=== PATIENT | female | born 1960 | race Caucasian/White ===

== ENCOUNTER 2022-10-18 12:54 | Inpatient (IN) | payer BC ==
[~2022-10-18] VITALS: Ht 170.2 cm; Wt 90.1 kg
[~2022-10-18 12:54] MED LIST: ALBUMIN (HUMAN) 25% 50 ML IV ONE; AMINOCAPROIC ACID 5,000MG VIAL IV ONE; CACL 1GM SYG IVP ONE; HEPARIN 10,000 UNIT/10ML (1,000 UNIT/ML) VIAL IV ONE; MANNITOL 25% 50ML VIAL IV ONE; SODIUM BICARB 8.4% 50ML SYRINGE IVP ONE
[2022-10-18 16:04] VITALS: BP 148/83
[2022-10-18] MEDS ORDERED: ACETAMINOPHEN 325 MG TAB PO PRN (17:00)
[2022-10-18] MEDS ORDERED: POTASSIUM CHLORIDE 20MEQ/100ML 100 ML IV PRN (17:00)
[2022-10-18] MEDS ORDERED: GLUCAGON 1MG KIT 1 MG ML IM PRN (17:00)
[2022-10-18] MEDS ORDERED: KCL 20 MEQ ERTAB PO PRN (17:00)
[2022-10-18] MEDS ORDERED: ONDANSETRON 4MG INJ IV PRN (17:00)
[2022-10-18] MEDS ORDERED: DEXTROSE 50%-WATER 50 ML DISP.SYRIN IV PRN (17:00)
[2022-10-18] MEDS ORDERED: LACTULOSE 20 GM/30 ML UDCUP PO PRN (17:00)
[2022-10-18] MEDS ORDERED: LIDOCAINE HCL-MPF 1% 2ML VIAL IV PRN (17:00)
[2022-10-18] MEDS ORDERED: POTASSIUM CHLORIDE 10% ELIXIR 20 MEQ/15 ML UDCUP PO PRN (17:00)
[2022-10-18] MEDS ORDERED: MAGNESIUM 2GM PREMIX 50ML 50 ML IV PRN (17:00)
[2022-10-18 17:21] LABS: BASOPHILS % (AUTO) 0.4 % (0.0-5.0); EOSINOPHILS % (AUTO) 0.9 % (0.0-8.0); HEMATOCRIT 38.1 % (36-48); MEAN CORPUSCULAR HEMOGLOBIN 27.7 pg (27.0-33.0); MEAN CORPUSCULAR HGB CONC 32.8 g/dL (32.0-36.0); MEAN CORPUSCULAR VOLUME 84.5 fL (79-99); NEUTROPHILS % (AUTO) 69.2 % (40.0-77.0); PLATELET COUNT (AUTO) 279 K/uL (130-400); RED BLOOD CELL COUNT(AUTO) 4.51 MIL/uL (4.00-5.50); WHITE BLOOD COUNT (AUTO) 12.3 K/uL (4.8-10.8)
[2022-10-18 17:33] LABS: ALBUMIN 3.4 g/dL (3.5-5.0)
[2022-10-18 17:58] LABS: HEMOGLOBIN A1C 10.8 % (4.0-6.0)
[2022-10-18] MEDS ORDERED: METF-446 PO (19:00)
[2022-10-18] MEDS ORDERED: INSU100V37 SQ (19:00)
[2022-10-18 19:15] VITALS: BP 163/78
[2022-10-18] MEDS ORDERED: CEFAZOLIN SODIUM 1 GM VIAL IVP SCH (19:30)
[2022-10-18] MEDS: METOPROLOL TARTRATE 25 MG TAB PO SCH (20:56)
[2022-10-18] MEDS: ATORVASTATIN 40 MG TABLET PO SCH (20:56)
[2022-10-18] MEDS: INSULIN HUMULIN R 100 UNIT/ML 3ML SQ SCH (21:14)
[2022-10-18] MEDS ORDERED: ZOLPIDEM TARTRATE 5 MG TAB PO ONE (23:00)
[2022-10-18] MEDS ORDERED: INSULIN HUMULIN R 100 UNIT/ML 3ML SQ ONE (23:00)
[2022-10-19] VITALS (27 sets, daily range): BP systolic 79–196; BP diastolic 39–103
[2022-10-19 03:43] LABS: BASOPHILS % (AUTO) 0.6 % (0.0-5.0); EOSINOPHILS % (AUTO) 1.4 % (0.0-8.0); HEMATOCRIT 35.9 % (36-48); LYMPHOCYTES % (AUTO) 28.3 % (21.0-51.0); MEAN CORPUSCULAR HEMOGLOBIN 27.6 pg (27.0-33.0); MEAN CORPUSCULAR HGB CONC 32.6 g/dL (32.0-36.0); MEAN CORPUSCULAR VOLUME 84.7 fL (79-99); MONOCYTES % (AUTO) 6.7 % (3.0-13.0); NEUTROPHILS % (AUTO) 62.6 % (40.0-77.0); PLATELET COUNT (AUTO) 243 K/uL (130-400); RED BLOOD CELL COUNT(AUTO) 4.24 MIL/uL (4.00-5.50); RED CELL DISTRIBUTION WIDTH 12.5 % (11.0-15.5); WHITE BLOOD COUNT (AUTO) 11.2 K/uL (4.8-10.8)
[2022-10-19 03:51] LABS: HEMOGLOBIN A1C 10.7 % (4.0-6.0)
[2022-10-19 03:54] LABS: INR 0.93 (0.85-1.15); POTASSIUM 3.9 mmol/L (3.5-5.1); PROTHROMBIN TIME 9.7 SEC (9.6-11.6)
[2022-10-19 03:55] LABS: PARTIAL THROMBOPLASTIN TIME 24.4 SEC (26.3-35.5)
[2022-10-19 03:58] LABS: TOTAL PROTEIN, SERUM 6.4 g/dL (6.0-8.3)
[2022-10-19 04:07] LABS: ABG BASE EXCESS 0.6 mmol/L (-2.0-3.0); ABG OXYGEN SATURATION 96.3 % (95.0-99.0); ABG PCO2 45 mmHg (32-45)
[2022-10-19 04:10] LABS: B-TYPE NATRIURETIC PEPTIDE 86 pg/mL (0-100)
[2022-10-19] MEDS: INSULIN HUMULIN R 100 UNIT/ML 3ML SQ SCH (07:30)
[2022-10-19] MEDS: ASPIRIN 81MG CHEW TAB PO SCH (08:10)
[2022-10-19] MEDS: METOPROLOL TARTRATE 25 MG TAB PO SCH (08:12)
[2022-10-19] MEDS ORDERED: NITROGLYCERIN 50MG/D5W 250ML 1 BOT ONE (08:27)
[2022-10-19] MEDS ORDERED: PAPAVERINE HCL 30 MG/ML 2ML VIAL ONE (08:44)
[2022-10-19] MEDS ORDERED: CEFAZOLIN SODIUM 1 GM VIAL ONE (08:44)
[2022-10-19] MEDS ORDERED: ENOXAPARIN SODIUM 40 MG/0.4 ML SYRINGE SQ SCH (09:00)
[2022-10-19] MEDS ORDERED: PANTOPRAZOLE 40 MG/VIAL IVP SCH (09:00)
[2022-10-19] MEDS ORDERED: ENOXAPARIN SODIUM 30 MG/0.3 ML SQ SCH (09:00)
[2022-10-19] MEDS ORDERED: EPINEPHRINE PF 1MG (1:1,000) 10 MG in 0.9% NACL 250ML 240 ML IV PRN ×2 (09:30→13:30)
[2022-10-19] MEDS ORDERED: AMINOCAPROIC ACID 5,000MG VIAL 15,000 MG in 0.9% NACL 500ML IV.SOLN 420 ML IV PRN (09:30)
[2022-10-19] MEDS ORDERED: NOREPINEPHRINE BITARTRATE 8 MG in DEXTROSE 5%-WATER 250 ML IV PRN (09:30)
[2022-10-19] MEDS ORDERED: DELNIDO FORMULA 2 BAG IV ONE (09:55)
[2022-10-19] MEDS ORDERED: INSULIN HUMULIN R 100 UNIT/ML 3ML IV ONE (11:00)
[2022-10-19] MEDS ORDERED: 0.9%NACL 1000ML 1,000 ML IV ONE (11:03)
[2022-10-19] MEDS ORDERED: LIDOCAINE PF 100MG/5ML (2%) SYRINGE 5ML ONE (11:22)
[2022-10-19] MEDS ORDERED: HEPARIN 10,000 UNIT/10ML (1,000 UNIT/ML) VIAL ONE ×2 (11:22→14:24)
[2022-10-19] MEDS ORDERED: EPINEPHRINE PF 1MG (1:1,000) 1 MG/ML AMP ONE (11:22)
[2022-10-19] MEDS ORDERED: PROTAMINE SULFATE 10 MG/ML 25ML VIAL IV ONE (11:22)
[2022-10-19] MEDS ORDERED: ESMOLOL HCL 10 MG/ML 10 ML VIAL ONE (11:22)
[2022-10-19] MEDS ORDERED: ROCURONIUM 10MG/1ML SYR 10 MG/ML ML ONE (11:23)
[2022-10-19] MEDS ORDERED: MIDAZOLAM HCL 1 MG/ML 2ML VIAL ONE (11:23)
[2022-10-19] MEDS ORDERED: PROPOFOL 10 MG/ML 20ML VIAL IV ONE (11:23)
[2022-10-19] MEDS ORDERED: FENTANYL CITRATE PF 50 MCG/1 ML 20ML VIAL IJ ONE (11:23)
[2022-10-19] MEDS ORDERED: SODIUM BICARB 50MEQ 50ML VIAL 100 ML ONE (11:23)
[2022-10-19] MEDS ORDERED: NOREPINEPHRINE BITARTRATE 1 MG/1 ML ML IV ONE (11:23)
[2022-10-19] MEDS ORDERED: AMINOCAPROIC ACID 5,000MG VIAL ONE (11:23)
[2022-10-19] MEDS ORDERED: KETAMINE 50MG/ML SYRINGE 50 MG/ML DISP.SYRIN ONE (11:24)
[2022-10-19 12:03] LABS: ABG BASE EXCESS -1.2 mmol/L (-2.0-3.0); ABG HCO3 22.9 mmol/L (21.0-28.0); ABG OXYGEN SATURATION 99.3 % (95.0-99.0); ABG PCO2 37 mmHg (32-45)
[2022-10-19] MEDS ORDERED: DESMOPRESSIN 40MCG INJ IJ ONE (13:09)
[2022-10-19] MEDS ORDERED: 0.9% NACL 500ML IV.SOLN 500 ML IV SCH (13:30)
[2022-10-19] MEDS ORDERED: DEXTROSE 50%-WATER 50 ML DISP.SYRIN IV PRN (13:30)
[2022-10-19] MEDS ORDERED: MORPHINE 2 MG SYG IV PRN (13:30)
[2022-10-19] MEDS ORDERED: PROPOFOL 1000 MG/100 ML 100 ML IV PRN (13:30)
[2022-10-19] MEDS ORDERED: POTASSIUM PHOS 15 mMOL+NS250ML 250 ML IV PRN (13:30)
[2022-10-19] MEDS ORDERED: ALBUMIN (HUMAN) 5% 250 ML IV PRN (13:30)
[2022-10-19] MEDS ORDERED: AMINOCAPROIC ACID 5,000MG VIAL 15,000 MG in 0.9% NACL 250ML 250 ML IV SCH (13:30)
[2022-10-19] MEDS ORDERED: NITROGLYCERIN 50MG/D5W 250ML 250 BOT IV SCH (13:30)
[2022-10-19] MEDS ORDERED: ACETAMINOPHEN 650 MG SUPPOSITORY RC PRN (13:30)
[2022-10-19] MEDS ORDERED: ACETAMINOPHEN 325 MG TAB PO PRN (13:30)
[2022-10-19] MEDS ORDERED: 0.9%NACL 10ML VIAL IVP PRN (13:30)
[2022-10-19] MEDS ORDERED: 0.9%NACL 1000ML 1,000 ML IV SCH (13:30)
[2022-10-19] MEDS ORDERED: MORPHINE 4 MG SYG IV PRN (13:30)
[2022-10-19] MEDS ORDERED: GLUCAGON 1MG KIT 1 MG ML IM PRN (13:30)
[2022-10-19] MEDS ORDERED: NOREPINEPHRIN 4MG/NS 250ML 250 ML IV PRN (13:30)
[2022-10-19 13:32] LABS: ABG BASE EXCESS 2.6 mmol/L (-2.0-3.0); ABG HCO3 26.2 mmol/L (21.0-28.0); ABG OXYGEN SATURATION 98.9 % (95.0-99.0); ABG PCO2 35 mmHg (32-45)
[2022-10-19 13:50] LABS: ABG BASE EXCESS 0.9 mmol/L (-2.0-3.0); ABG HCO3 24.7 mmol/L (21.0-28.0); ABG OXYGEN SATURATION 98.9 % (95.0-99.0); ABG PCO2 35 mmHg (32-45)
[2022-10-19 14:02] LABS: ABG BASE EXCESS 0.4 mmol/L (-2.0-3.0); ABG HCO3 24.3 mmol/L (21.0-28.0); ABG OXYGEN SATURATION 98.7 % (95.0-99.0); ABG PCO2 36 mmHg (32-45)
[2022-10-19 14:19] LABS: ABG BASE EXCESS -0.6 mmol/L (-2.0-3.0); ABG HCO3 23.8 mmol/L (21.0-28.0); ABG OXYGEN SATURATION 98.8 % (95.0-99.0); ABG PCO2 38 mmHg (32-45)
[2022-10-19] MEDS ORDERED: PROTAMINE SULFATE 10 MG/ML 5 ML VIAL ONE (14:24)
[2022-10-19 14:27] LABS: ABG BASE EXCESS -2.2 mmol/L (-2.0-3.0); ABG HCO3 22.5 mmol/L (21.0-28.0); ABG OXYGEN SATURATION 98.9 % (95.0-99.0); ABG PCO2 38 mmHg (32-45)
[2022-10-19 14:51] LABS: ABG BASE EXCESS -4.9 mmol/L (-2.0-3.0); ABG HCO3 19.7 mmol/L (21.0-28.0); ABG OXYGEN SATURATION 98.9 % (95.0-99.0); ABG PCO2 34 mmHg (32-45)
[2022-10-19] MEDS ORDERED: ASPIRIN 81MG CHEW TAB NG ONE (15:00)
[2022-10-19] MEDS ORDERED: GLYCOPYRROLATE 1 MG/5 ML SYRINGE ONE (15:33)
[2022-10-19 15:55] LABS: ABG BASE EXCESS -3.9 mmol/L (-2.0-3.0); ABG HCO3 21.8 mmol/L (21.0-28.0); ABG OXYGEN SATURATION 98.5 % (95.0-99.0); ABG PCO2 42 mmHg (32-45)
[2022-10-19 16:03] LABS: HEMATOCRIT 28.1 % (36-48); MEAN CORPUSCULAR HGB CONC 33.1 g/dL (32.0-36.0); MEAN CORPUSCULAR VOLUME 84.6 fL (79-99); PLATELET COUNT (AUTO) 189 K/uL (130-400); RED BLOOD CELL COUNT(AUTO) 3.32 MIL/uL (4.00-5.50); RED CELL DISTRIBUTION WIDTH 12.7 % (11.0-15.5)
[2022-10-19] MEDS: SODIUM BICARB 50MEQ 50ML VIAL IV PRN ×3 (16:09→20:16)
[2022-10-19 16:14] LABS: WHITE BLOOD COUNT (AUTO) 32.7 K/uL (4.8-10.8)
[2022-10-19 16:17] LABS: CREATININE 0.8 mg/dL (0.5-1.5); MAGNESIUM 1.7 mg/dL (1.80-2.40); PHOSPHORUS 3.6 mg/dL (2.5-4.9)
[2022-10-19 16:20] LABS: INR 1.09 (0.85-1.15); PROTHROMBIN TIME 11.8 SEC (9.6-11.6)
[2022-10-19] MEDS ORDERED: HYDRALAZINE 20MG/ML VIAL ONE (16:20)
[2022-10-19 16:21] LABS: PARTIAL THROMBOPLASTIN TIME 25.6 SEC (26.3-35.5)
[2022-10-19] MEDS ORDERED: HYDRALAZINE 20MG/ML VIAL IV PRN (16:30)
[2022-10-19 17:11] LABS: ABG BASE EXCESS -0.7 mmol/L (-2.0-3.0); ABG HCO3 23.9 mmol/L (21.0-28.0); ABG OXYGEN SATURATION 98.6 % (95.0-99.0); ABG PCO2 39 mmHg (32-45)
[2022-10-19] MEDS: INSULIN REGULAR, HUMAN 3ML 100 UNIT in 0.9%NACL 100ML 99 ML IV SCH ×2 (17:33)
[2022-10-19] MEDS: MAGNESIUM 2GM PREMIX 50ML 50 ML IV PRN (17:39)
[2022-10-19] MEDS: CALCIUM GLUC 1GM 1 GM in 0.9%NACL 50ML 50 ML IV PRN ×3 (18:21→22:43)
[2022-10-19] MEDS: CEFAZOLIN SODIUM 1 GM VIAL IVPB SCH (18:21)
[2022-10-19 18:40] LABS: BAND NEUTROPHILS % (MANUAL) 27 % (0-2); LYMPHOCYTES % (MANUAL) 4 % (22-44); MAN.DIFF COMMENT-IMPRESSION MANUAL DIFFERENTIAL; MONOCYTES % (MANUAL) 1 % (2-9); SEGMENTED NEUTROPHILS % 68 % (40-70)
[2022-10-19 19:05] LABS: ABG BASE EXCESS -3.4 mmol/L (-2.0-3.0); ABG HCO3 22.3 mmol/L (21.0-28.0); ABG OXYGEN SATURATION 95.6 % (95.0-99.0); ABG PCO2 43 mmHg (32-45)
[2022-10-19] MEDS: POTASSIUM CHLORIDE 20MEQ/100ML 100 ML IV PRN ×3 (19:22→22:43)
[2022-10-19 20:06] LABS: ABG BASE EXCESS -1.4 mmol/L (-2.0-3.0); ABG OXYGEN SATURATION 95.4 % (95.0-99.0); ABG PCO2 37 mmHg (32-45)
[2022-10-19] MEDS: ATORVASTATIN 40 MG TABLET PO SCH (20:15)
[2022-10-19] MEDS: FAMOTIDINE 20MG VIAL IV SCH (20:15)
[2022-10-19 21:15] LABS: ABG BASE EXCESS 1.8 mmol/L (-2.0-3.0); ABG HCO3 26.2 mmol/L (21.0-28.0); ABG PCO2 41 mmHg (32-45)
[2022-10-19 22:29] LABS: ABG BASE EXCESS 0.7 mmol/L (-2.0-3.0); ABG HCO3 25.5 mmol/L (21.0-28.0); ABG OXYGEN SATURATION 95.4 % (95.0-99.0); ABG PCO2 42 mmHg (32-45)
[2022-10-19] MEDS ORDERED: CALCIUM GLUC 1GM/10ML VIAL ONE (22:41)
[2022-10-19] MEDS ORDERED: 0.9%NACL 50ML 50 ML IV ONE (22:45)
[2022-10-19] MEDS: TRAMADOL HCL 50 MG TABLET PO PRN (23:18)
[2022-10-20] VITALS (62 sets, daily range): BP systolic 65–275; BP diastolic 54–275
[2022-10-20 00:10] LABS: ABG HCO3 23.7 mmol/L (21.0-28.0); ABG OXYGEN SATURATION 95.9 % (95.0-99.0); ABG PCO2 39 mmHg (32-45)
[2022-10-20] MEDS: TRAMADOL HCL 50 MG TABLET PO PRN ×5 (00:26→20:36)
[2022-10-20] MEDS: POTASSIUM CHLORIDE 20MEQ/100ML 100 ML IV PRN ×3 (00:27→15:08)
[2022-10-20] MEDS: SODIUM BICARB 50MEQ 50ML VIAL IV PRN (00:27)
[2022-10-20] MEDS: ONDANSETRON 4MG INJ IV PRN ×3 (01:35→15:40)
[2022-10-20] MEDS: CEFAZOLIN SODIUM 1 GM VIAL IVPB SCH ×2 (01:35→10:05)
[2022-10-20] MEDS: ACETAMINOPHEN 325 MG TAB PO PRN (03:02)
[2022-10-20 03:49] LABS: ABG HCO3 27.5 mmol/L (21.0-28.0); ABG PCO2 42 mmHg (32-45)
[2022-10-20 04:00] LABS: HEMATOCRIT 27.5 % (36-48); MEAN CORPUSCULAR HEMOGLOBIN 28.4 pg (27.0-33.0); MEAN CORPUSCULAR HGB CONC 33.5 g/dL (32.0-36.0); MEAN CORPUSCULAR VOLUME 84.9 fL (79-99); RED BLOOD CELL COUNT(AUTO) 3.24 MIL/uL (4.00-5.50); RED CELL DISTRIBUTION WIDTH 13.1 % (11.0-15.5); WHITE BLOOD COUNT (AUTO) 16.5 K/uL (4.8-10.8)
[2022-10-20 04:13] LABS: INR 0.95 (0.85-1.15); PROTHROMBIN TIME 10.4 SEC (9.6-11.6)
[2022-10-20 04:14] LABS: MAGNESIUM 1.7 mg/dL (1.80-2.40); PHOSPHORUS 3.6 mg/dL (2.5-4.9); POTASSIUM 3.7 mmol/L (3.5-5.1)
[2022-10-20 04:15] LABS: PARTIAL THROMBOPLASTIN TIME 23.8 SEC (26.3-35.5)
[2022-10-20] MEDS: MAGNESIUM 2GM PREMIX 50ML 50 ML IV PRN (06:53)
[2022-10-20] MEDS: FAMOTIDINE 20MG VIAL IV SCH ×2 (09:26→20:35)
[2022-10-20] MEDS: METOPROLOL TARTRATE 25 MG TAB PO SCH ×2 (09:26→20:35)
[2022-10-20] MEDS: FUROSEMIDE 20MG VIAL IV SCH ×2 (09:26→20:35)
[2022-10-20] MEDS: ASPIRIN 81MG CHEW TAB PO SCH (09:26)
[2022-10-20] MEDS: INSULIN REGULAR, HUMAN 3ML 100 UNIT in 0.9%NACL 100ML 99 ML IV SCH ×2 (12:16)
[2022-10-20] MEDS: ATORVASTATIN 40 MG TABLET PO SCH (20:34)
[2022-10-20] MEDS: DOCUSATE SODIUM 100 MG CAP PO SCH (20:35)
[2022-10-21] VITALS (35 sets, daily range): BP systolic 110–178; BP diastolic 45–83
[2022-10-21] MEDS: TRAMADOL HCL 50 MG TABLET PO PRN ×4 (03:30→21:55)
[2022-10-21 04:13] LABS: HEMATOCRIT 25.1 % (36-48); MEAN CORPUSCULAR HEMOGLOBIN 28.3 pg (27.0-33.0); MEAN CORPUSCULAR HGB CONC 33.1 g/dL (32.0-36.0); MEAN CORPUSCULAR VOLUME 85.7 fL (79-99); RED BLOOD CELL COUNT(AUTO) 2.93 MIL/uL (4.00-5.50); RED CELL DISTRIBUTION WIDTH 13.2 % (11.0-15.5); WHITE BLOOD COUNT (AUTO) 18.3 K/uL (4.8-10.8)
[2022-10-21 04:21] LABS: POTASSIUM 3.7 mmol/L (3.5-5.1)
[2022-10-21] MEDS: POTASSIUM CHLORIDE 20MEQ/100ML 100 ML IV PRN (04:55)
[2022-10-21 07:22] LABS: MAGNESIUM 1.8 mg/dL (1.80-2.40); POTASSIUM 4.3 mmol/L (3.5-5.1)
[2022-10-21] MEDS: DOCUSATE SODIUM 100 MG CAP PO SCH ×2 (08:29→20:25)
[2022-10-21] MEDS: FUROSEMIDE 20 MG TABLET PO SCH ×2 (08:30→16:36)
[2022-10-21] MEDS: METOPROLOL TARTRATE 25 MG TAB PO SCH ×2 (08:30→20:35)
[2022-10-21] MEDS: FAMOTIDINE 20MG TAB PO SCH ×2 (08:30→20:25)
[2022-10-21] MEDS: ASPIRIN 81MG CHEW TAB PO SCH (08:31)
[2022-10-21] MEDS ORDERED: METOPROLOL TARTRATE 25 MG TAB PO SCH (09:00)
[2022-10-21] MEDS ORDERED: BISACODYL 10 MG SUPP.RECT RC PRN (10:30)
[2022-10-21] MEDS ORDERED: MAGNESIUM HYDROXIDE 30 ML/UDCUP PO PRN (10:30)
[2022-10-21] MEDS: INSULIN HUMULIN R 100 UNIT/ML 3ML SQ SCH ×3 (11:58→21:48)
[2022-10-21] MEDS: MAGNESIUM 2GM PREMIX 50ML 50 ML IV PRN (13:25)
[2022-10-21] MEDS: ACETAMINOPHEN 325 MG TAB PO PRN (16:38)
[2022-10-21] MEDS: ATORVASTATIN 40 MG TABLET PO SCH (20:25)
[2022-10-22 00:21] VITALS: BP 131/75
[2022-10-22 03:21] VITALS: BP 150/85
[2022-10-22 03:47] LABS: HEMATOCRIT 24.7 % (36-48); MEAN CORPUSCULAR HGB CONC 32.8 g/dL (32.0-36.0); MEAN CORPUSCULAR VOLUME 85.5 fL (79-99); RED BLOOD CELL COUNT(AUTO) 2.89 MIL/uL (4.00-5.50); RED CELL DISTRIBUTION WIDTH 12.6 % (11.0-15.5); WHITE BLOOD COUNT (AUTO) 14.8 K/uL (4.8-10.8)
[2022-10-22 04:00] LABS: MAGNESIUM 1.7 mg/dL (1.80-2.40); POTASSIUM 4.2 mmol/L (3.5-5.1)
[2022-10-22] MEDS: TRAMADOL HCL 50 MG TABLET PO PRN ×5 (04:13→22:12)
[2022-10-22] MEDS: INSULIN HUMULIN R 100 UNIT/ML 3ML SQ SCH ×4 (06:37→22:14)
[2022-10-22] MEDS: MAGNESIUM 2GM PREMIX 50ML 50 ML IV PRN (06:53)
[2022-10-22 08:00] VITALS: BP 148/89
[2022-10-22] MEDS: ASPIRIN 81MG CHEW TAB PO SCH (08:48)
[2022-10-22] MEDS: DOCUSATE SODIUM 100 MG CAP PO SCH ×2 (08:48→20:19)
[2022-10-22] MEDS: METOPROLOL TARTRATE 25 MG TAB PO SCH ×2 (08:49→20:20)
[2022-10-22] MEDS: FUROSEMIDE 20 MG TABLET PO SCH ×2 (08:49→16:42)
[2022-10-22] MEDS: POLYETHYLENE GLYCOL 3350 17 GM POWD.PACK PO SCH (08:50)
[2022-10-22] MEDS: FAMOTIDINE 20MG TAB PO SCH ×2 (08:50→20:19)
[2022-10-22 12:26] VITALS: BP 117/72
[2022-10-22 16:00] VITALS: BP 131/75
[2022-10-22] MEDS: ENOXAPARIN SODIUM 30 MG/0.3 ML SQ SCH (16:46)
[2022-10-22 19:15] VITALS: BP 142/73
[2022-10-22] MEDS: ATORVASTATIN 40 MG TABLET PO SCH (20:19)
[2022-10-23 00:15] VITALS: BP 132/79
[2022-10-23 03:15] VITALS: BP 134/84
[2022-10-23 04:18] LABS: HEMATOCRIT 24.4 % (36-48); MEAN CORPUSCULAR HEMOGLOBIN 28.6 pg (27.0-33.0); MEAN CORPUSCULAR VOLUME 84.1 fL (79-99); RED BLOOD CELL COUNT(AUTO) 2.9 MIL/uL (4.00-5.50); RED CELL DISTRIBUTION WIDTH 12.4 % (11.0-15.5); WHITE BLOOD COUNT (AUTO) 13.9 K/uL (4.8-10.8)
[2022-10-23 04:39] LABS: POTASSIUM 3.6 mmol/L (3.5-5.1)
[2022-10-23] MEDS: INSULIN HUMULIN R 100 UNIT/ML 3ML SQ SCH ×4 (07:30→20:53)
[2022-10-23 08:00] VITALS: BP 159/91
[2022-10-23] MEDS: METOPROLOL TARTRATE 25 MG TAB PO SCH ×2 (08:53→20:47)
[2022-10-23] MEDS: FAMOTIDINE 20MG TAB PO SCH ×2 (08:53→20:47)
[2022-10-23] MEDS: DOCUSATE SODIUM 100 MG CAP PO SCH ×2 (08:53→20:47)
[2022-10-23] MEDS: ASPIRIN 81MG CHEW TAB PO SCH (08:54)
[2022-10-23] MEDS: FUROSEMIDE 20 MG TABLET PO SCH ×2 (08:54→16:48)
[2022-10-23] MEDS: TRAMADOL HCL 50 MG TABLET PO PRN ×3 (08:54→20:48)
[2022-10-23] MEDS: LOSARTAN 25 MG TABLET PO SCH (08:54)
[2022-10-23] MEDS: ENOXAPARIN SODIUM 30 MG/0.3 ML SQ SCH (08:57)
[2022-10-23] MEDS: POLYETHYLENE GLYCOL 3350 17 GM POWD.PACK PO SCH (08:57)
[2022-10-23] MEDS ORDERED: POTASSIUM CHLORIDE 20MEQ/100ML 100 ML IV PRN (10:30)
[2022-10-23] MEDS ORDERED: LIDOCAINE HCL-MPF 1% 2ML VIAL IV PRN (10:30)
[2022-10-23] MEDS ORDERED: POTASSIUM CHLORIDE 10% ELIXIR 20 MEQ/15 ML UDCUP PO PRN (10:30)
[2022-10-23] MEDS: MAGNESIUM 2GM PREMIX 50ML 50 ML IV PRN (11:45)
[2022-10-23] MEDS: KCL 20 MEQ ERTAB PO PRN (11:45)
[2022-10-23 12:00] VITALS: BP 116/73
[2022-10-23] MEDS ORDERED: FUROSEMIDE 40MG VIAL IV SCH (14:00)
[2022-10-23 14:18] LABS: CREATININE 1.1 mg/dL (0.5-1.5); POTASSIUM 4.5 mmol/L (3.5-5.1)
[2022-10-23 16:00] VITALS: BP 134/75
[2022-10-23 20:00] VITALS: BP 146/76
[2022-10-23] MEDS: ATORVASTATIN 40 MG TABLET PO SCH (20:47)
[2022-10-23] MEDS: TRAZODONE HCL 100 MG TABLET PO PRN (20:47)
[2022-10-24] VITALS (7 sets, daily range): BP systolic 97–143; BP diastolic 58–77
[2022-10-24] MEDS: INSULIN HUMULIN R 100 UNIT/ML 3ML SQ SCH ×4 (06:41→21:13)
[2022-10-24] MEDS: ASPIRIN 81MG CHEW TAB PO SCH (08:01)
[2022-10-24] MEDS: DOCUSATE SODIUM 100 MG CAP PO SCH ×2 (08:01→20:12)
[2022-10-24] MEDS: FUROSEMIDE 20 MG TABLET PO SCH ×2 (08:01→16:36)
[2022-10-24] MEDS: LOSARTAN 25 MG TABLET PO SCH (08:01)
[2022-10-24] MEDS: METOPROLOL TARTRATE 25 MG TAB PO SCH ×2 (08:01→20:11)
[2022-10-24] MEDS: FAMOTIDINE 20MG TAB PO SCH ×2 (08:01→20:11)
[2022-10-24] MEDS: TRAMADOL HCL 50 MG TABLET PO PRN ×2 (08:02→13:13)
[2022-10-24] MEDS: POLYETHYLENE GLYCOL 3350 17 GM POWD.PACK PO SCH (08:02)
[2022-10-24] MEDS: ENOXAPARIN SODIUM 30 MG/0.3 ML SQ SCH (08:03)
[2022-10-24 09:13] LABS: BASOPHILS % (AUTO) 0.4 % (0.0-5.0); EOSINOPHILS % (AUTO) 1.1 % (0.0-8.0); HEMATOCRIT 26.5 % (36-48); LYMPHOCYTES % (AUTO) 15.2 % (21.0-51.0); MEAN CORPUSCULAR HEMOGLOBIN 28.1 pg (27.0-33.0); MEAN CORPUSCULAR HGB CONC 32.8 g/dL (32.0-36.0); MEAN CORPUSCULAR VOLUME 85.5 fL (79-99); MONOCYTES % (AUTO) 9.8 % (3.0-13.0); PLATELET COUNT (AUTO) 315 K/uL (130-400); RED CELL DISTRIBUTION WIDTH 12.6 % (11.0-15.5); WHITE BLOOD COUNT (AUTO) 12.4 K/uL (4.8-10.8)
[2022-10-24 09:31] LABS: CREATININE 1.1 mg/dL (0.5-1.5)
[2022-10-24 09:37] LABS: ALBUMIN 2.2 g/dL (3.5-5.0); TOTAL PROTEIN, SERUM 5.9 g/dL (6.0-8.3)
[2022-10-24] MEDS: ACETAMINOPHEN 325 MG TAB PO PRN (20:10)
[2022-10-24] MEDS: TRAZODONE HCL 100 MG TABLET PO PRN (20:11)
[2022-10-24] MEDS: ATORVASTATIN 40 MG TABLET PO SCH (20:11)
[2022-10-25] VITALS (7 sets, daily range): BP systolic 101–140; BP diastolic 59–77
[2022-10-25 03:38] LABS: BASOPHILS % (AUTO) 0.5 % (0.0-5.0); EOSINOPHILS % (AUTO) 1.6 % (0.0-8.0); HEMATOCRIT 24.8 % (36-48); LYMPHOCYTES % (AUTO) 24.3 % (21.0-51.0); MEAN CORPUSCULAR HEMOGLOBIN 28.1 pg (27.0-33.0); MEAN CORPUSCULAR HGB CONC 32.7 g/dL (32.0-36.0); MEAN CORPUSCULAR VOLUME 86.1 fL (79-99); MONOCYTES % (AUTO) 9.7 % (3.0-13.0); NEUTROPHILS % (AUTO) 62.1 % (40.0-77.0); NUCLEATED RED BLOOD CELLS 0.2 % (0.0-0.19); PLATELET COUNT (AUTO) 316 K/uL (130-400); RED BLOOD CELL COUNT(AUTO) 2.88 MIL/uL (4.00-5.50); RED CELL DISTRIBUTION WIDTH 12.4 % (11.0-15.5); WHITE BLOOD COUNT (AUTO) 11.3 K/uL (4.8-10.8)
[2022-10-25 03:54] LABS: ALBUMIN 2.1 g/dL (3.5-5.0); CREATININE 1.1 mg/dL (0.5-1.5); POTASSIUM 3.8 mmol/L (3.5-5.1); TOTAL PROTEIN, SERUM 5.6 g/dL (6.0-8.3)
[2022-10-25] MEDS: ACETAMINOPHEN 325 MG TAB PO PRN ×4 (03:56→20:34)
[2022-10-25] MEDS: KCL 20 MEQ ERTAB PO PRN ×2 (04:06→09:43)
[2022-10-25] MEDS: INSULIN HUMULIN R 100 UNIT/ML 3ML SQ SCH ×4 (07:09→20:39)
[2022-10-25] MEDS: ASPIRIN 81MG CHEW TAB PO SCH (08:37)
[2022-10-25] MEDS: POLYETHYLENE GLYCOL 3350 17 GM POWD.PACK PO SCH (08:37)
[2022-10-25] MEDS: FAMOTIDINE 20MG TAB PO SCH ×2 (08:37→20:34)
[2022-10-25] MEDS: DOCUSATE SODIUM 100 MG CAP PO SCH ×2 (08:37→20:35)
[2022-10-25] MEDS: LOSARTAN 25 MG TABLET PO SCH (08:42)
[2022-10-25] MEDS: FUROSEMIDE 20 MG TABLET PO SCH ×2 (08:42→17:11)
[2022-10-25] MEDS: METOPROLOL TARTRATE 25 MG TAB PO SCH ×2 (08:42→20:33)
[2022-10-25] MEDS: ENOXAPARIN SODIUM 30 MG/0.3 ML SQ SCH (08:43)
[2022-10-25] MEDS: TRAZODONE HCL 100 MG TABLET PO PRN (20:34)
[2022-10-25] MEDS: ATORVASTATIN 40 MG TABLET PO SCH (20:34)
[2022-10-26] MEDS: ACETAMINOPHEN 325 MG TAB PO PRN ×3 (01:20→13:15)
[2022-10-26 04:04] VITALS: BP 132/71
[2022-10-26] MEDS: INSULIN HUMULIN R 100 UNIT/ML 3ML SQ SCH ×3 (06:35→16:30)
[2022-10-26] MEDS: DOCUSATE SODIUM 100 MG CAP PO SCH (07:34)
[2022-10-26] MEDS: ASPIRIN 81MG CHEW TAB PO SCH (07:34)
[2022-10-26] MEDS: POLYETHYLENE GLYCOL 3350 17 GM POWD.PACK PO SCH (07:35)
[2022-10-26] MEDS: FAMOTIDINE 20MG TAB PO SCH (07:35)
[2022-10-26] MEDS: ENOXAPARIN SODIUM 30 MG/0.3 ML SQ SCH (07:36)
[2022-10-26] MEDS: LOSARTAN 25 MG TABLET PO SCH (07:44)
[2022-10-26] MEDS: FUROSEMIDE 20 MG TABLET PO SCH (07:44)
[2022-10-26] MEDS: METOPROLOL TARTRATE 25 MG TAB PO SCH (07:44)
[2022-10-26 07:45] VITALS: BP 131/73
[2022-10-26] MEDS ORDERED: INSULIN GLARGINE 100 UNITS/ML 10 ML VIAL SQ SCH ×2 (09:30→21:00)
[2022-10-26 11:31] VITALS: BP 137/75
[2022-10-26 16:00] VITALS: BP 148/68
== END 2022-10-26 16:48 | DRG 235 ==
LOC: 2AH 16:07 → 2CV 10-19 13:54 → 2BH 10-20 12:43 → 2DH 10-21 14:26
PROVIDERS: ADMIT Hospitalist; ATTEND Hospitalist
PROC: 02100Z9 Bypass Coronary Artery, One Artery from Left Internal Mammary, Open Approach (ICD-10-PCS; principal; 2022-10-19 11:23)
PROC: 0211093 Bypass Coronary Artery, Two Arteries from Coronary Artery with Autologous Venous Tissue, Open Approach (ICD-10-PCS; 2022-10-19 11:23)
PROC: 06BQ4ZZ Excision of Left Saphenous Vein, Percutaneous Endoscopic Approach (ICD-10-PCS; 2022-10-19 11:23)
DX: I25.110 Atherosclerotic heart disease of native coronary artery with unstable angina pectoris (principal); I21.4 Non-ST elevation (NSTEMI) myocardial infarction; I50.33 Acute on chronic diastolic (congestive) heart failure; J96.01 Acute respiratory failure with hypoxia; J95.2 Acute pulmonary insufficiency following nonthoracic surgery; I31.9 Disease of pericardium, unspecified; Z20.822 Contact with and (suspected) exposure to COVID-19; I45.10 Unspecified right bundle-branch block; I11.0 Hypertensive heart disease with heart failure; D50.0 Iron deficiency anemia secondary to blood loss (chronic); D72.829 Elevated white blood cell count, unspecified; E11.65 Type 2 diabetes mellitus with hyperglycemia; E66.9 Obesity, unspecified; E78.00 Pure hypercholesterolemia, unspecified; F17.210 Nicotine dependence, cigarettes, uncomplicated; I25.2 Old myocardial infarction; K59.00 Constipation, unspecified; Z79.4 Long term (current) use of insulin; Z79.82 Long term (current) use of aspirin; Z79.899 Other long term (current) drug therapy; Z91.199 Patient's noncompliance with other medical treatment and regimen due to unspecified reason; Z68.31 Body mass index [BMI] 31.0-31.9, adult
CPT/HCPCS: 36415; 36600; 71045; 80048; 80053; 80061; 82330; 82435; 82803; 82947; 82948; 83036; 83605; 83735; 83880; 84100; 84132; 84295; 85018; 85025; 85027; 85060; 85347; 85610; 85730; 86850; 86900; 86901; 86923; 87635; 87641; 93005; 93306; 93312; 93318; 93356; 93880; 94002; 94010; 97039; A7048; C1729; G0378; J0171; J0360; J0610; J0690; J1644; J1650; J1815; J1940; J2001; J2150; J2250; J2405; J2440; J2597; J2704; J2720; J3010; J3475; J3480; J3490; J7030; J7040; P9045; P9047